=== PATIENT | male | born 1970 | race African-American/Black ===

== ENCOUNTER 2021-08-22 20:44 | Emergency (ER) | payer OTHER ==
[~2021-08-22 20:44] MED LIST: AMLODIPINE BES2.5 MG PO; CELEXA20 MG PO; COZAAR50 MG PO; HCTZ25 MG PO; TOPROL XL 25MG25 MG PO
[2021-08-22 21:29] LABS: BASOPHIL 0.3 % (0-2); EOSINOPHIL 1.1 % (0-5); HGB 13.7 g/dl (13.2-18.0); LYMPHOCYTE 16.1 % (15-48); MCH 29.5 pg (25.0-31.0); MCHC 33.4 g/dL (32.0-36.0); MCV 88.4 fL (78.0-100.0); MONOCYTE 12.2 % (0-12); MPV 9.4 fL (6.0-9.5); NEUTROPHIL 69.6 % (41-80); NRBC 0; PLT 385 K/uL (150-400); RBC 4.64 M/uL (4.70-6.00); RDW 13.5 % (11.5-14.0); WBC 11.4 K/uL (4.0-10.5)
[2021-08-22 21:42] LABS: ALBUMIN 3.7 g/dL (3.4-5.0); BILIRUBIN - TOTAL 0.4 mg/dL (0.2-1.0); BUN/CREAT RATIO (CALC) 15.5 RATIO; CREATININE 1.1 mg/dL (0.67-1.17); GLOBULIN (CALCULATION) 3.7 g/dL; POTASSIUM 3.9 mmol/L (3.5-5.1); TOTAL PROTEIN 7.4 g/dL (6.4-8.2)
[2021-08-22 22:47] LABS: INFLUENZA A NAA NEGATIVE (NEGATIVE)
[2021-08-22 22:51] LABS: CORONAVIRUS 2019 SARS-COV-2 POSITIVE (NEGATIVE)
[2021-08-23 00:14] LABS: BARBITURATES NEGATIVE (NEGATIVE); ECSTASY (MDMA) NEGATIVE (NEGATIVE); MARIJUANA (THC) POSITIVE (NEGATIVE); METHADONE NEGATIVE (NEGATIVE); OPIATES POSITIVE (NEGATIVE)
[2021-08-23 00:15] LABS: AMPHETAMINES NEGATIVE (NEGATIVE); OXYCODONE NEGATIVE (NEGATIVE)
[2021-08-23 00:18] LABS: BILIRUBIN NEGATIVE (NEGATIVE); BLOOD 1+ Ery/uL (NEGATIVE); GLUCOSE (U) NORMAL (NORMAL); LEUKOCYTES NEGATIVE Leu/uL (NEGATIVE); NITRITE NEGATIVE (NEGATIVE); PROTEIN NEGATIVE (NEGATIVE); UROBILINOGEN 0.2 mg/dL (0.2-1.0)
[2021-08-23 00:21] LABS: CLARITY CLEAR (CLEAR); COLOR YELLOW (YELLOW)
[2021-08-23 00:26] LABS: URINARY RBC RARE; URINARY WBC RARE
== END 2021-08-23 04:05 | disposition home or self-care (01) ==
LOC: FER 20:44
PROVIDERS: Emergency Medicine
DX: U07.1 COVID-19 (principal); S01.511A Laceration without foreign body of lip, initial encounter; R07.89 Other chest pain; I10 Essential (primary) hypertension; Z79.899 Other long term (current) drug therapy; X58.XXXA Exposure to other specified factors, initial encounter
CPT/HCPCS: 36415; 70450; 71045; 71275; 72125; 80053; 80305; 81001; 84484; 85025; 90471; 90715; 93005; J1170; J1953; J2270; J7030; Q9967; U0002

== ENCOUNTER 2022-03-16 23:53 | Emergency (ER) | payer OTHER | END 2022-03-17 00:43 | disposition home or self-care (01) | LOC: FER 23:53 | DX: S81.011A Laceration without foreign body, right knee, initial encounter (principal); I10 Essential (primary) hypertension; W26.0XXA Contact with knife, initial encounter; Y93.89 Activity, other specified; Y92.009 Unspecified place in unspecified non-institutional (private) residence as the place of occurrence of the external cause | CPT/HCPCS: 73560 ==